=== PATIENT | male | born 1990 | race Asian ===

== ENCOUNTER 2018-08-19 10:50 | Emergency (ER) | payer OTHER ==
[~2018-08-19] VITALS: Ht 165.1 cm; Wt 84.4 kg
[2018-08-19 10:54] VITALS: Ht 165.1 cm; Wt 84.4 kg
[2018-08-19 12:14] VITALS: BP 137/89
== END 2018-08-19 12:14 | disposition home or self-care (01) ==
LOC: ED 10:50
DX: H43.391 Other vitreous opacities, right eye (principal)